=== PATIENT | female | born 1965 | race Caucasian/White ===

== ENCOUNTER 2020-07-05 16:17 | Outpatient (CLI) | payer OTHER | END 2020-07-05 16:18 | disposition home or self-care (01) | LOC: LAB 16:17 | PROVIDERS: ATTEND Naturopath | DX: Z20.828 Contact with and (suspected) exposure to other viral communicable diseases (principal) ==

== ENCOUNTER 2022-03-13 08:00 | Outpatient (CLI) | payer OTHER ==
--- NOTE | 2022-03-13 17:43 | XRAY Report ---
PROCEDURE: Ankle 3 View LT INDICATIONS: LEFT ANKLE PAIN TECHNIQUE: 3 views of the ankle were acquired. COMPARISON: None FINDINGS: Bones: No fractures or dislocations. Ankle mortise is normally aligned. No suspicious bony lesions . Calcaneal spur. Soft tissues: No tibiotalar joint effusion. Achilles tendon appears normal. IMPRESSION: No visualized acute fracture or dislocation. However, occult injury cannot be excluded. Recommend short interval imaging follow-up in 7-10 days as clinically indicated for additional evalua tion. Reviewed by: Dona Vega MD on 03/13/2022 5:42 PM PDT Approved by: Dona Vega MD on 03/13/2022 5:42 PM PDT Station ID: [id number]
== END 2022-03-13 23:59 | disposition home or self-care (01) ==
LOC: DI.S 08:00
PROVIDERS: ATTEND Emergency Medicine
DX: S93.492A Sprain of other ligament of left ankle, initial encounter (principal)

== ENCOUNTER 2022-05-13 10:53 | Outpatient (CLI) | payer OTHER ==
[2022-05-13 14:21] LABS: BASOPHILS % (AUTO) 0.4 %; EOSINOPHILS # (AUTO) 0.1 10^3/uL (0.0-0.7); EOSINOPHILS % (AUTO) 2.1 %; HCT - HEMATOCRIT 40.3 % (37.0-47.0); HGB - HEMOGLOBIN 13.3 g/dL (12.0-16.0); LYMPHOCYTES # (AUTO) 1.5 10^3/uL (1.5-3.5); LYMPHOCYTES % (AUTO) 30.2 %; MEAN CORPUSCULAR HEMOGLOBIN 31.3 pg (27.0-31.0); MEAN CORPUSCULAR VOLUME 94.8 fL (81.0-99.0); MEAN PLATELET VOLUME 9.4 fL (7.9-10.8); MONOCYTES # (AUTO) 0.3 10^3/uL (0.0-1.0); MONOCYTES % (AUTO) 6.6 %; NEUTROPHILS # (AUTO) 2.9 10^3/uL (1.5-6.6); NEUTROPHILS % (AUTO) 60.5 %; PLT - PLATELET COUNT 264 10^3/uL (130-450); RED BLOOD COUNT 4.25 10^6/uL (4.20-5.40); RED CELL DISTRIBUTION WIDTH 12.4 % (12.0-15.0); WHITE BLOOD COUNT 4.8 x10^3/uL (4.8-10.8)
[2022-05-13 15:19] LABS: THYROID STIMULATING HORMONE 1.06 uIU/mL (0.34-5.60)
[2022-05-13 15:20] LABS: CHOL/HDL RATIO 2.2 (<4.4); CHOLESTEROL 195 mg/dL; HDL CHOLESTEROL 89 mg/dL; LDL CHOLESTEROL,CALCULATED 97 mg/dL; LDL/HDL RATIO 1.1 (<4.4); TRIGLYCERIDES 43 mg/dL; VLDL CHOLESTEROL 9 mg/dL
[2022-05-13 15:21] LABS: FREE T4 (FREE THYROXINE) 0.83 ng/dL (0.58-1.64)
[2022-05-13 15:22] LABS: FREE T3 3.24 pg/mL (2.5-3.9)
[2022-05-13 15:26] LABS: CRP - C-REACTIVE PROTEIN < 1.0 mg/dL (0-1.0)
[2022-05-13 15:47] LABS: FOLLICLE STIMULATING HORMONE 62.51 mIU/mL
[2022-05-14 07:09] LABS: DHEA-SULFATE 54.3 ug/dL (29.4-220.5); PROGESTERONE 0.6 ng/mL (.)
[2022-05-14 08:09] LABS: APOLIPOPROTEIN B 64 mg/dL (<90)
[2022-05-15 19:07] LABS: FREE TESTOSTERONE(DIRECT) 0.6 pg/mL (0.0-4.2); TESTOSTERONE <3 ng/dL (4-50)
== END 2022-05-13 10:54 | disposition home or self-care (01) ==
LOC: LAB.S 10:53
PROVIDERS: ATTEND Naturopath
DX: K30 Functional dyspepsia (principal); K58.0 Irritable bowel syndrome with diarrhea; N95.1 Menopausal and female climacteric states
CPT/HCPCS: 36415; 80061; 81599; 82172; 82306; 82542; 82607; 82627; 82670; 83001; 83721; 84144; 84402; 84403; 84439; 84443; 84480; 84481; 85025; 86140

== ENCOUNTER 2022-05-29 09:55 | Outpatient (CLI) | payer OTHER ==
[2022-05-29 14:54] LABS: ALBUMIN 4.1 g/dL (3.2-5.5); ALBUMIN/GLOBULIN RATIO 1.5 (1.0-2.2); BILIRUBIN,TOTAL 0.9 mg/dL (0.2-1.0); CALCIUM 9.1 mg/dL (8.5-10.3); CREATININE 0.6 mg/dL (0.4-1.0); POTASSIUM 3.9 mmol/L (3.5-5.0); TOTAL PROTEIN 6.9 g/dL (6.7-8.2)
[2022-05-29 20:38] LABS: ESTIMATED AVERAGE GLUCOSE 105 mg/dL (70-100); HEMOGLOBIN A1c% 5.3 % (4.27-6.07)
== END 2022-05-29 09:56 | disposition home or self-care (01) ==
LOC: LAB.S 09:55
PROVIDERS: ATTEND Naturopath
DX: Z00.00 Encounter for general adult medical examination without abnormal findings (principal); F41.9 Anxiety disorder, unspecified; K58.0 Irritable bowel syndrome with diarrhea; N95.1 Menopausal and female climacteric states
CPT/HCPCS: 36415; 80053; 83036; 83525

== ENCOUNTER 2022-06-17 14:01 | Outpatient (CLI) | payer OTHER | END 2022-06-17 14:02 | disposition home or self-care (01) | LOC: LAB.S 14:01 | PROVIDERS: ATTEND Naturopath | DX: K58.0 Irritable bowel syndrome with diarrhea (principal) | CPT/HCPCS: 81599; 86677 ==

== ENCOUNTER 2023-06-03 12:15 | Outpatient (CLI) | payer OTHER ==
[2023-06-03 13:02] LABS: BILIRUBIN,URINE NEGATIVE (NEGATIVE); GLUCOSE, URINE (UA) NEGATIVE (NEGATIVE); KETONES,URINE (UA) NEGATIVE (NEGATIVE); LEUKOCYTE ESTERASE, URINE NEGATIVE (NEGATIVE); NITRITE,URINE NEGATIVE (NEGATIVE); OCCULT BLOOD,URINE TRACE-INTA (NEGATIVE); PROTEIN,URINE NEGATIVE (NEGATIVE); UROBILINOGEN,URINE 0.2 (NORMAL) E.U./dL (NORMAL)
[2023-06-03 13:11] LABS: BACTERIA,URINE Rare /HPF (None Seen); CLARITY,URINE CLEAR (CLEAR); RBC,URINE None Seen /HPF (0-5); SQUAMOUS EPITHELIAL CELL,UR NONE SEEN (<= Few); WBC,URINE 0-3 /HPF (0-5)
--- NOTE | 2023-06-04 16:20 | XRAY Report ---
PROCEDURE: Chest 2 View X-Ray INDICATIONS: DYSPNEA TECHNIQUE: 2 views of the chest were acquired. COMPARISON: None. FINDINGS: Surgical changes and devices: None. Lungs and pleura: No pleural effusions or pneumothorax. Lungs are clear. Mediastinum: Mediastinal contours appear normal. Heart size is normal. Bones and chest wall: No suspicious bony lesions. Overlying soft tissues appear unremarkable. IMPRESSION: No acute cardiopulmonary process. Reviewed by: Sanya Carlos MD on 06/04/2023 4:19 PM PDT Approved by: Sanya Carlos MD on 06/04/2023 4:19 PM PDT Station ID: [id number]
== END 2023-06-03 12:16 | disposition home or self-care (01) ==
LOC: DI 12:15
PROVIDERS: ATTEND Naturopath
DX: R06.00 Dyspnea, unspecified (principal); R30.0 Dysuria
CPT/HCPCS: 81001